=== PATIENT | female | born 1960 | race Caucasian/White ===

== ENCOUNTER 2017-08-10 09:47 | Emergency (ER) | payer OTHER, BC ==
[~2017-08-10] VITALS: Ht 160 cm; Wt 81.6 kg
[~2017-08-10 09:47] MED LIST: IBUP-121 PO
[2017-08-10 10:00] VITALS: BP 128/75
--- NOTE | 2017-08-10 10:08 | NUR ---
PT AMBULATED TO BED 3
--- NOTE | 2017-08-10 10:10 | NUR ---
56F BIB SELF WITH C/O 5/10 INTERMITTENT RIGHT INGUINAL PAIN X LAST NIGHT. PATIENT DENIES ANY URINARY COMPLAINTS, FEVERS, N/V/D, OR VAGINAL DISCHARGE/BLEEDING. PT PAIN CAME SUDDENLY. PT IS AOX4 WITH STEADY GAIT. RR ARE EVEN AND UNLABORED. PATIENT ON CELLPHONE TALKING AND LAUGHING UPON ENTERING ROOM. AWAITING ER MD NEWMAN. PATIENT AWARE OF NEED OF URINE SAMPLE. WILL CONTINUE TO MONITOR.
--- NOTE | 2017-08-10 10:24 | NUR ---
Kenroy spence in ED - 08/10/17 at 1034 by BUDDY RAIN ARELLANO BY BEDSIDE EXAMINING PATIENT
[2017-08-10] MEDS ORDERED: ACETAMINOPHEN EXTRA STRENGTH 500 MG TAB PO ONE (10:55)
--- NOTE | 2017-08-10 11:20 | NUR ---
us by bedside
[2017-08-10 13:00] VITALS: BP 134/71
--- NOTE | 2017-08-10 13:00 | NUR ---
Patient discharged with v/s stable. Written and verbal after care instructions given and explained. Patient alert, oriented and verbalized understanding of instructions. Ambulatory with steady gait. All questions addressed prior to discharge. ID band removed. Patient advised to follow up with PMD. Rx of Motrin and Senokot given. Patient educated on indication of medication including possible reaction and side effects. Opportunity to ask questions provided and answered.
== END 2017-08-10 13:00 | disposition home or self-care (01) ==
LOC: MED 09:47
DX: R10.31 Right lower quadrant pain (principal); Z88.0 Allergy status to penicillin
CPT/HCPCS: 76856; 81002; 81025; 99284; Q0092